=== PATIENT | male | born 1975 | race Caucasian/White ===

== ENCOUNTER 2018-02-12 01:46 | Emergency (ER) | payer OTHER ==
[~2018-02-12] VITALS: Ht 177.8 cm; Wt 90.0 kg
[2018-02-12 02:13] VITALS: BP 157/99
[2018-02-12] MEDS ORDERED: PROPOFOL 10 MG/ML, 20ML ONE ×2 (02:28→03:20)
[2018-02-12] MEDS ORDERED: SODIUM CHLORIDE FLUSH 10ML SYR IVF ONE (02:30)
[2018-02-12] MEDS ORDERED: PROPOFOL 10 MG/ML, 20ML IVP ONE (03:00)
[2018-02-12] MEDS ORDERED: PROPOFOL 10 MG/ML, 20ML IVPush ONE ×2 (04:00)
== END 2018-02-12 04:09 | disposition home or self-care (01) ==
LOC: ED 02:05
DX: T18.128A Food in esophagus causing other injury, initial encounter (principal); X58.XXXA Exposure to other specified factors, initial encounter; Y93.89 Activity, other specified; Y99.8 Other external cause status; Y92.89 Other specified places as the place of occurrence of the external cause
CPT/HCPCS: 43247; 93005; 99152; 99285; J2704